=== PATIENT | female | born 1980 | race Caucasian/White ===

== ENCOUNTER 2018-11-05 10:36 | Emergency (ER) | payer BC, OTHER ==
[~2018-11-05] VITALS: Ht 157.5 cm; Wt 52.8 kg
--- NOTE | 2018-11-05 11:08 | NUR ---
VITALS MONITORED. PT.'S SECOND ANTIBIOTIC IS INFUSING ON THE PUMP. PT. IS RESTING WITHOUT CONCERNS. SIDERAILS REMAIN UP X 2 WITH THE CALL LIGHT IN PLACE.
[2018-11-05] MEDS ORDERED: ALBUTEROL/IPRATROPIUM 2.5MG/0.5MG, 3 ML ONE (11:11)
--- NOTE | 2018-11-05 11:20 | NUR ---
pt assessed, c/o productive cough with yellow sputum x 3 days. Denies fevers. Pt denies any resp hx. Wheezes t/o. RT at BS. Will cont to monitor
[2018-11-05] MEDS ORDERED: ALBUTEROL/IPRATROPIUM 2.5MG/0.5MG, 3 ML NPPB ONE (11:30)
[2018-11-05 11:33] LABS: BASOPHILS # (AUTO) 0.02 x10^3/uL (0-0.1); BASOPHILS % (AUTO) 0 % (0-1); EOSINOPHILS # (AUTO) 0.14 x10^3/uL (0-0.4); EOSINOPHILS % (AUTO) 2 % (1-7); LYMPHOCYTES # (AUTO) 1.28 x10^3/uL (1-3.4); LYMPHOCYTES % (AUTO) 14 % (22-44); MD NO; MEAN CORPUSCULAR HEMOGLOBIN 29.7 pg (27.0-34.8); MEAN CORPUSCULAR HGB CONC 32.2 g/dL (32.4-35.8); MEAN CORPUSCULAR VOLUME 92.2 fL (80-100); MEAN PLATELET VOLUME 8.1 fL (7.4-10.4); MONOCYTES # (AUTO) 0.68 x10^3/uL (0.2-0.8); MONOCYTES % (AUTO) 8 % (2-9); NEUTROPHILS # (AUTO) 6.78 x10^3/uL (1.8-6.8); NEUTROPHILS % (AUTO) 76 % (42-75); PLATELET COUNT 234 x10^3/uL (130-400); RED BLOOD COUNT 4.96 x10^6/uL (3.82-5.3); RED CELL DISTRIBUTION WIDTH 12.6 % (9.6-15.2)
[2018-11-05 11:49] LABS: ANION GAP 7 mmol/L (5-15); CALCIUM 8.6 mg/dL (8.5-10.1); CHLORIDE 109 mmol/L (98-107); CREATININE 0.77 mg/dL (0.55-1.02)
--- NOTE | 2018-11-05 12:12 | NUR ---
PT REPORTS IMPROVED BREATHING POST TREATMENT UP FOR RE-EVAL
[2018-11-05 12:21] VITALS: BP 125/74
== END 2018-11-05 12:51 | disposition home or self-care (01) ==
LOC: ED 11:10
DX: J98.01 Acute bronchospasm (principal); R94.31 Abnormal electrocardiogram [ECG] [EKG]; F17.210 Nicotine dependence, cigarettes, uncomplicated
CPT/HCPCS: 36415; 71046; 80048; 82040; 85025; 93005; 94640; 99284; 99406; J7620